=== PATIENT | female | born 1975 | race Caucasian/White ===

== ENCOUNTER 2020-02-13 11:14 | Outpatient (CLI) | payer OTHER, SELFPAY ==
[2020-02-13 12:03] LABS: SARS-CoV-2 Ag Negative (Negative)
== END 2020-02-13 11:15 | disposition home or self-care (01) ==
LOC: CHSLAB 11:21
PROVIDERS: PCP Internal Medicine; Visit Provider Internal Medicine
DX: Z20.828 Contact with and (suspected) exposure to other viral communicable diseases (principal)
CPT/HCPCS: 87426

== ENCOUNTER 2020-02-27 09:25 | Outpatient (CLI) | payer OTHER, SELFPAY ==
--- NOTE | ~2020-02-27 | MMUS_ITS ---
EXAMINATION: MM diagnostic gem BI w marti, US breast LT complete, US breast RT limited HISTORY: Palpable right breast abnormality. TECHNIQUE: Additional 3-D tomosynthesis images of the breasts were performed and synthetic 2-D images were generated. CAD analysis was submitted and interpreted. High resolution Limited right and comple te left breast ultrasound was performed. COMPARISON: No prior studies for comparison. BREAST PARENCHYMAL COMPOSITION: The breasts are heterogenously dense, which may obscure small masses. FINDINGS: MAMMOGRAPHIC FINDINGS: There are no suspicious masses, calcifications or architectural distortion in either breast to sugges t malignancy. ULTRASOUND: Limited right and complete left breast ultrasound demonstrates normal heterogeneous echotexture witho ut focal mass. IMPRESSION: 1. No evidence for malignancy in either breast. 2. Routine yearly screening mammogram and regular clinical breast examination are recommended. BI-RADS Category 1: Negative Reviewed, dictated and finalized at location A. 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 No evidence for malignancy in either breast. 2. Routine yearly screening mammogram and regular clinical breast examination a re recommended. BI-RADS Category 1: Negative IMPRESSION: 1. No evidence for malignancy in either breast. 2. Routine yearly screening mammogram and regular clinical breast examination a re recommended. BI-RADS Category 1: Negative
== END 2020-02-27 09:26 | disposition home or self-care (01) ==
PROVIDERS: PCP Internal Medicine; Visit Provider Internal Medicine
DX: N63.10 Unspecified lump in the right breast, unspecified quadrant (principal); Z12.31 Encounter for screening mammogram for malignant neoplasm of breast
CPT/HCPCS: 76641; 76642; 77062; 77066; G0279

== ENCOUNTER 2021-03-09 11:43 | Outpatient (CLI) | payer OTHER, SELFPAY ==
[2021-03-09 13:12] LABS: Influenza Control Valid (Valid)
[2021-03-09 13:18] LABS: SARS-CoV-2 Ag Negative (Negative)
[2021-03-10 19:07] LABS: SARS-CoV-2 RNA PCR Negative
== END 2021-03-09 11:44 | disposition home or self-care (01) ==
LOC: CHSLAB 11:45
PROVIDERS: PCP Internal Medicine; Visit Provider Internal Medicine
DX: J06.9 Acute upper respiratory infection, unspecified (principal); Z20.822 Contact with and (suspected) exposure to COVID-19
CPT/HCPCS: 87081; 87426; 87804; 87880; C9803; U0003; U0005

== ENCOUNTER 2021-12-24 12:58 | Outpatient (CLI) | payer OTHER, SELFPAY ==
--- NOTE | ~2021-12-24 | CT_ITS ---
EXAMINATION: CT sinus wo con DATE: 12/24/2021 13:22 INDICATION: Chronic sinusitis. Deviated nasal septum. TECHNIQUE: Computed tomography (CT) of the paranasal sinuses was performed without contrast. Iterativ e reconstruction technique was employed. Exam dose: 321.89 mGy-cm total exam DLP. COMPARISON: None FINDINGS: There is leftward deviation of the nasal septum. There is bilateral middle nasal turbinate nimisha bullosa. There is asymmetric soft tissue swelling of the left inferior nasal turbinate. The paranasal sinuses are normally developed and aerated. The ostiomeatal units are patent. The mastoid air cells are normally developed and aerated. IMPRESSION: Leftward deviation of nasal septum Asymmetric soft tissue swelling of left inferior nasal turbinate Nimisha bullosa of both middle nasal turbinates Patent paranasal sinuses, ostiomeatal units and mastoid air cells Reviewed, dictated and finalized at [facility]. Reviewed, dictated and finalized at location A. 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
== END 2021-12-24 12:59 | disposition home or self-care (01) ==
LOC: CHSIMG 13:00
PROVIDERS: PCP Internal Medicine; Visit Provider Internal Medicine
DX: J32.9 Chronic sinusitis, unspecified (principal); J34.9 Unspecified disorder of nose and nasal sinuses
CPT/HCPCS: 70486

== ENCOUNTER 2023-08-01 12:38 | Outpatient (CLI) | payer OTHER, SELFPAY ==
--- NOTE | ~2023-08-01 | US_ITS ---
EXAMINATION: US soft tissue head and neck DATE: 08/01/2023 13:00 INDICATION: Posterior cervical lymphadenopathy. TECHNIQUE: Multiple grayscale and Doppler ultrasound images of the head and neck were obtained. COMPARISON: None FINDINGS: There are normal superficial lymph nodes in the right posterior neck. IMPRESSION: 1. No abnormal neck mass or lymphadenopathy in the patient's area of concern. Reviewed, dictated and finalized at location E.
== END 2023-08-01 12:39 ==
PROVIDERS: PCP Physician Assistant; Visit Provider Family Medicine
DX: R59.0 Localized enlarged lymph nodes (principal)
CPT/HCPCS: 76536